=== PATIENT | male | born 1980 | race Caucasian/White ===

== ENCOUNTER 2016-10-22 00:37 | Emergency (ER) | payer SELFPAY ==
--- NOTE | 2016-10-26 08:46 | ER ---
ADMIT: 10/22/2016 RM/LOC: ER [facility] MR#: [id number] [address] [id number] [facility] [address] [place] [address] Emergency Room Report SEX: M AGE: 36 : 1980 DATE: 10/22/2016 A 36-year-old, taken to senior care, subsequently transferred back over here for medical clearance, known meth abuser. He has no complaints other than he is hungry. See T-sheet for history and physical. Medically cleared for senior care. Chase Grubbs MD/ mazin JOB #: [id number] CC: Gael Bray MD, Attending Physician Edwin Gonzalez MD, Family Physician
== END 2016-10-22 00:48 ==
LOC: ER 00:37
DX: Z02.89 Encounter for other administrative examinations (principal); F17.200 Nicotine dependence, unspecified, uncomplicated